=== PATIENT | male | born 1985 | race African-American/Black ===

== ENCOUNTER 2016-09-18 04:31 | Emergency (ER) | payer MEDICARE ==
[2016-09-18] MEDS ORDERED: PREDNISONE 20 MG TABLET PO ONE (05:02)
[2016-09-18] MEDS ORDERED: BENZONATATE 100 MG CAPSULE PO ONE (05:02)
--- NOTE | 2016-09-18 05:19 | ER Document Report ---
HPI - HPI Patient complains to provider of: cough Pain Level: 5 Context: Patient is a 31-year-old male that comes emergency department for chief complaint of one week of coughing episodes and congestion. Patient states that he has episodes where he coughs so hard he has thrown up. He denies blood in the vomit or blood in the mucus. Patient smokes daily, patient denies any fevers, patient denies any other current symptoms. He denies sinus pain or pressure, dizziness, chest pain, shortness of breath, wheezing. Denies any other medical history. Patient reports sick contacts with similar symptoms. - REPRODUCTIVE Reproductive: DENIES: : - DERM Skin Color: Normal Past Medical History - General Information source: Patient - Social History Smoking Status: Current Every Day Smoker Chew tobacco use (# tins/day): No Smoking Education Provided: Yes - <3 min Frequency of alcohol use: None Drug Abuse: None Lives with: Family Family History: Reviewed & Not Pertinent - mother is healthy. Does not know much about his father Patient has suicidal ideation: No Patient has homicidal ideation: No - Past Medical History Cardiac Medical History: Reports: Hx Hypertension Renal/ Medical History: Denies: Hx Peritoneal Dialysis Surgical Hx: Negative - Immunizations Immunizations up to date: Yes Hx Diphtheria, Pertussis, Tetanus Vaccination: Yes Vertical Provider Document - CONSTITUTIONAL General Appearance: WD/WN, No Apparent Distress - INFECTION CONTROL TRAVEL OUTSIDE OF THE [place] IN LAST 30 DAYS: No - HEENT HEENT: Atraumatic, Normal ENT Exam, Normocephalic. negative: Pharyngeal Exudate , Pharyngeal Tenderness, Pharyngeal Erythema - NECK Neck: Normal Inspection - RESPIRATORY Respiratory: Breath Sounds Normal, No Respiratory Distress, Other - Patient has a fairly regular congested sounding cough, clear lungs with no wheezing, full breath sounds bilaterally, no tachypnea, no labored breathing, no cyanosis O2 Sat by Pulse Oximetry: 95 - CARDIOVASCULAR Cardiovascular: Regular Rate, Regular Rhythm - GI/ABDOMEN Gastrointestinal: Abdomen Soft, Abdomen Non-Tender - BACK Back: Normal Inspection - MUSCULOSKELETAL/EXTREMETIES Musculoskeletal/Extremeties: MAEW, FROM, Non-Tender - NEURO Level of Consciousness: Awake, Alert, Appropriate Motor/Sensory: No Motor Deficit, No Sensory Deficit - DERM Integumentary: Warm, Dry, No Rash Course - Re-evaluation Re-evalutation: No signs of respiratory distress, clear lungs, no hypoxia. Patient with congested cough, symptoms and examination are suggestive of bronchitis in a smoker, discussed smoking cessation, placing on prednisone, Mucinex, Tessalon, referred to primary care for additional management and management of blood pressure, discussed return precautions. Patient states understanding and agreement. - Vital Signs Vital signs: Temp Pulse Resp BP Pulse Ox 100.2 F 130 H 18 113/85 95 09/18/16 04:49 09/18/16 04:49 09/18/16 04:49 09/18/16 04:49 09/18/16 04:49 Discharge - Discharge Clinical Impression: Cough, Bronchitis, Tobacco abuse Condition: Stable Disposition: HOME, SELF-CARE Additional Instructions: Take the prednisone as prescribed for cough/congestion (next dose is tomorrow - Wednesday). Take Tessalon for cough. Take ibuprofen for body aches. Take the mucinex for chest congestion. Physical examination symptoms are most consistent with bronchitis. Stop smoking. Follow-up with primary care. Return to emergency department for any concerning or worsening symptoms including shortness of breath, spiking fevers, etc. Prescriptions: Benzonatate [Tessalon Perle 100 mg Capsule] 100 mg PO ASDIR PRN #20 cap PRN Reason: Cough Guaifenesin [Mucinex] 600 mg PO Q12 #20 tab.er.12h Prednisone [Deltasone 10 mg Tablet] 10 mg PO ASDIR PRN #21 tablet PRN Reason: Forms: Smoking Cessation Education, Return to Work, Elevated Blood Pressure Referrals: [facility] [Provider Group] - Follow up as needed [facility] [Provider Group] - Follow up as needed
[2016-09-18 05:38] VITALS: BP 132/84
== END 2016-09-18 05:35 | disposition home or self-care (01) ==
LOC: ER 04:31
DX: J40 Bronchitis, not specified as acute or chronic (principal); R05 Cough; I10 Essential (primary) hypertension; F17.200 Nicotine dependence, unspecified, uncomplicated; Z71.6 Tobacco abuse counseling
CPT/HCPCS: 99284; A9270 ×2; J7512

== ENCOUNTER 2017-11-05 02:03 | Emergency (ER) | payer MEDICARE, MEDICAID ==
--- NOTE | 2017-11-05 03:29 | ER Document Report ---
HPI - HPI Patient complains to provider of: right middle finger numbness Pain Level: 5 Context: Patient is a 32 year old male who presents to the ED complaining of right middle finger numbness/pain and right forearm pain/numbness. Patient states that he has a history of this previously when he was in high school and injured his right arm that resolved after he stopped playing sports. He states that he has developed a similar symptoms when he does any sort of physical labor. 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 he states it doesnt bother him when he isnt working. He states he continuously smacks his hand edilma table to make sure he can feel it, Denies any swelling, redness, color change, paleness, weakness. Improves with motrin - REPRODUCTIVE Reproductive: DENIES: : Past Medical History - Social History Smoking Status: Never Smoker Family History: Reviewed & Not Pertinent - mother is healthy. Does not know much about his father - Past Medical History Cardiac Medical History: Reports: Hx Hypertension Renal/ Medical History: Denies: Hx Peritoneal Dialysis - Immunizations Immunizations up to date: Yes Hx Diphtheria, Pertussis, Tetanus Vaccination: Yes Vertical Provider Document - CONSTITUTIONAL Agree With Documented VS: Yes Notes: PHYSICAL EXAM GENERAL: Alert, interacts well. EXTREMITIES: Moves all 4 extremities spontaneously. No edema, radial and dorsalis pedis pulses 2/4 bilaterally. No cyanosis. fast food attendant strength equal bilaterally NEUROLOGICAL: Alert and oriented x4. Normal speech. 2 point discrimination intact, sharp/dull interpretation intact. Face symmetric. Tongue protrudes midline. 5 out of 5 strength in both the distal and proximal upper extremities. Sensation is grossly intact throughout. PSYCH: Normal affect, normal mood. SKIN: Warm, dry, normal turgor. No rashes or lesions noted. - INFECTION CONTROL TRAVEL OUTSIDE OF THE [place] IN LAST 30 DAYS: No Course - Re-evaluation Re-evalutation: 11/05/17 04:38 patient is a 32 year old male without evidence of a septic joint, gout flare, dislocation, or fracture on exam and imaging. Vitals wnl. At this time, I do not see an indication for labs or further imaging. Will discharge with conservative measures, return precautions, and follow-up recommendations. Patient did leave prior to discharge without papers - Vital Signs Vital signs: Temp Pulse Resp BP Pulse Ox 98.5 F 72 18 147/92 H 98 11/05/17 02:10 11/05/17 02:10 11/05/17 02:10 11/05/17 02:10 11/05/17 02:10 - Diagnostic Test Radiology reviewed: Image reviewed, Reports reviewed Discharge - Discharge Clinical Impression: Right hand pain Condition: Good Disposition: HOME, SELF-CARE Additional Instructions: Your complaint today requires further follow up with a primary care doctor for tests that can be done in the ER. Your symptoms are not consistent with carpal tunnel. Please contact the office located on this paperwork Forms: Elevated Blood Pressure Referrals: [facility] [Provider Group] - Follow up in 1 week
--- NOTE | 2017-11-05 04:22 | RADIOLOGY REPORT (SQ) ---
EXAM DESCRIPTION: HAND RIGHT 3 VIEWS CLINICAL HISTORY: 32 years, Male, right middle finger pain COMPARISON: None. Findings: Mild deformity of the right fifth metacarpus consistent with prior injury. Bones, joints, and soft tissues of HAND RIGHT 3 VIEWS appear otherwise intact. No significant effusion. IMPRESSION: No acute findings.
[2017-11-05 05:46] VITALS: BP 123/80
== END 2017-11-05 05:00 | disposition home or self-care (01) ==
LOC: ER 02:03
DX: M79.641 Pain in right hand (principal); R20.0 Anesthesia of skin; M79.631 Pain in right forearm; I10 Essential (primary) hypertension
CPT/HCPCS: 99283